=== PATIENT | female | born 1970 | race Caucasian/White ===

== ENCOUNTER 2018-09-13 06:18 | Observation (INO) | payer BC ==
[~2018-09-13] VITALS: Ht 157.5 cm; Wt 76.2 kg
--- NOTE | 2018-09-13 05:55 | NUR ---
Report received from Juanita De La Torre.Patient admitted in unit at 0625 by walking with her . Patient alert/oriented x3. Denied pain and no SOB,Spo2 maintained 98% with RA.Patient came for surgery for esophageal foreigner body. Consent done.Bed in lower position,locked. Will continue to monitor.
--- OUTSIDE RECORDS SUMMARY | 2018-09-13 06:29 | XMS REPORT | Summary of Care ---
Author Author [facility] [place] Organization [facility] [place] Address Unknown Phone Unavailable Encounter HQ Encntr_pat(FIN) [id number] Date(s): 01/20/16 - 01/20/16 [facility] [place] [address] [place] [phone] Discharge Disposition: Home Attending Physician: Keyla Hernandez MD Vital Signs No data available for this section Problem List No data available for this section Allergies, Adverse Reactions, Alerts No data available for this section Medications No data available for this section Results No data available for this section Immunizations No data available for this section Procedures No data available for this section Social History No data available for this section Assessment and Plan No data available for this section
--- OUTSIDE RECORDS SUMMARY | 2018-09-13 06:29 | XMS REPORT | Summary of Care ---
Author Author [facility] Organization [facility] Address Unknown Phone Unavailable Encounter HQ Yudi(JERSON) [id number] Date(s): 10/07/17 - 10/09/17 [facility] [address] [place] [address]- [phone] Encounter Diagnosis Chronic obstructive pulmonary disease with acute lower respiratory infection (Final) - Chronic obstructive pulmonary disease with (acute) exacerbation (Final) - 10/13/17 Nicotine dependence, cigarettes, uncomplicated (Final) - Acute bronchitis due to other specified organisms (Final) - Chronic obstructive pulmonary disease with acute lower respiratory infection (Final) - Discharge Disposition: Home or Self Care Attending Physician: Thomas Chen MD Admitting Physician: Thomas Chen MD Referring Physician: Physician, Non Associated MD Vital Signs 1 2 3 Most recent to oldest [Reference Range]: 157.48 cm (10/07/17 8:43 PM) Height 98.0 DegF (10/09/17 11:53 AM) 97.5 DegF (10/09/17 8:26 AM) 97.4 DegF (10/09/17 3:24 AM) Temperature Oral [96.4-99.1 DegF] 125/87 mmHg (10/09/17 11:53 AM) 125/81 mmHg (10/09/17 8:26 AM) 130/76 mmHg (10/09/17 3:24 AM) Blood Pressure [90-140/60-90 mmHg] 16 BRMIN (10/09/17 7:41 AM) 18 BRMIN (10/08/17 11:27 PM) 18 BRMIN (10/08/17 8:25 PM) Respiratory Rate [14-20 BRMIN] 93 bpm (10/09/17 11:53 AM) 88 bpm (10/09/17 8:26 AM) 81 bpm (10/09/17 3:24 AM) Peripheral Pulse Rate [60-100 bpm] 76.818 kg (10/07/17 8:43 PM) Weight 30.98 m2 (10/07/17 8:43 PM) Body Mass Index Problem List No data available for this section Allergies, Adverse Reactions, Alerts Substance Reaction Severity Status NKDA Active Medications acetaminophen 650 mg, 2 tab, Route: PO, Drug form: TAB, Q4H, Dosing Weight 76.818, kg, PRN Alix n Score 1-3, Start date: 10/08/17 0:57:00 CDT, Duration: 30 day, Stop date: 10/16 11/01 0:56:00 CDT Notes: Do not exceed 4 gm/day. (Same as: Tylenol) Start Date: 10/08/17 Stop Date: 10/09/17 Status: Discontinued albuterol-ipratropium 2.5-0.5 mg inhalation solution 3 mL, Route: NEB, Drug Form: SOLN, kg, RQ6H, Start date: 10/07/17 20:53:00 CDT, Duration: 30 day, Stop date: 11/06/17 20:00:00 CDT Notes: (Same as: Duoneb) Start Date: 10/07/17 Stop Date: 10/09/17 Status: Discontinued albuterol-ipratropium 2.5-0.5 mg inhalation solution 3 ml, Route: NEB, Drug Form: SOLN, Dosing Weight 76.818, kg, Q4H, PRN as needed for shortness of breath or wheezing, Start date: 10/07/17 22:48:00 CDT, Duration : 30 day, Stop date: 11/06/17 22:47:00 CDT Notes: (Same as: Duoneb) Start Date: 10/07/17 Stop Date: 10/09/17 Status: Discontinued cetirizine 10 mg, 2 tab, Route: PO, Drug form: TAB, Daily, PRN Allergies, Start date: 10/09 10:40:00 CDT, Duration: 30 day, Stop date: 11/08/17 10:39:00 CDT Notes: (Same As: Zyrtec) Start Date: 10/09/17 Stop Date: 10/09/17 Status: Discontinued Claritin 10 mg, Route: PO, Drug form: TAB, Daily, Dosing Weight 76.818, kg, PRN Allergies , Start date: 10/09/17 10:12:00 CDT, Duration: 30 day, Stop date: 11/08/17 10:11 :00 CDT Start Date: 10/09/17 Stop Date: 10/09/17 Status: Deleted Claritin-D 24 Hour oral tablet, extended release 1 tab, PO, Daily, PRN as needed for allergy symptoms, 0 Refill(s) Start Date: 10/07/17 Status: Ordered DuoNeb inhalation solution 3 mL, NEB, BID, 0 Refill(s) Start Date: 10/07/17 Status: Ordered Levaquin 750 mg, Route: IVPB, Drug form: SOLN, [id number], Dosing Weight 76.818, kg, Start d ate: 10/07/17 23:00:00 CDT, Duration: 10 day, Stop date: 10/16/17 23:00:00 CDT, ABX Indication: Non-PNA Respiratory Tract Infection Start Date: 10/07/17 Stop Date: 10/08/17 Status: Deleted levofloxacin 750 mg, 3 tab, Route: PO, Drug form: TAB, [id number], kg, For CrCl > 49 mL/min, Priority: Routine, Start date: 10/07/17 21:00:00 CDT, Duration: 5 day, Stop date: 10/11/17 21:00:00 CDT, ABX Indication: Non-PNA Respiratory Tract Infection Notes: Do not give w/antacids, dairy pdt & minerals Take 1 hr before or 2 hr after dairy pdt (Same as:Levaquin) Start Date: 10/07/17 Stop Date: 10/09/17 Status: Discontinued levofloxacin 250 mg oral tablet 750 mg=3 tab, PO, [id number], # 5 tab, 0 Refill(s), Pharmacy: [facility] Start Date: 10/09/17 Stop Date: 10/09/17 Status: Completed Lovenox 40 mg, 0.4 mL, Route: SUB-Q, Drug form: INJ, [id number], Dosing Weight 76.818, kg, Start date: 10/08/17 18:00:00 CDT, Duration: 30 day, Stop date: 11/06/17 18:00: 00 CDT Notes: (Same as: Lovenox) Start Date: 10/08/17 Stop Date: 10/09/17 Status: Discontinued Omnipaque 350 100 ml, Route: IV, Drug Form: SOLN, Dosing Weight 76.818, kg, ONCE, Start date: 10/08/17 17:32:00 CDT, Stop date: 10/08/17 17:32:00 CDT Notes: (same as:Omnipaque 350).WASTE: F/P - Black; E - [facility] Trash [facility] Start Date: 10/08/17 Stop Date: 10/13/17 Status: Discontinued predniSONE 60 mg, 3 tab, Route: PO, Drug form: TAB, Daily, kg, Start date: 10/08/17 9:00:00 CDT, Duration: 5 day, Stop date: 10/12/17 9:00:00 CDT Notes: Take with food. Start Date: 10/08/17 Stop Date: 10/09/17 Status: Discontinued predniSONE 60 mg, Route: PO, Drug form: TAB, Daily, Dosing Weight 76.818, kg, Start date: 0 10/08/17 9:00:00 CDT, Duration: 30 day, Stop date: 11/06/17 9:00:00 CDT Start Date: 10/08/17 Stop Date: 10/08/17 Status: Deleted predniSONE 10 mg oral tablet 10 mg=1 tab, PO, Daily, 60 mg x 3days 40 mg x 3 days 20 mg x 3 days 10 mg x 3 days, # 39 tab, 0 Refill(s), Pharmacy: [facility] Start Date: 10/09/17 Stop Date: 10/09/17 Status: Completed ProAir HFA 1 - 2 puffs, PO, Q4H, PRN Wheezing / cough / shortness of breath, # 1 ea, 0 Refi ll(s) Start Date: 10/07/17 Stop Date: 11/01/17 Status: Ordered Tylenol 500 mg, PO, Q6H, PRN Pain 1-3/Temp > 100.4 F, 0 Refill(s) Start Date: 10/07/17 Status: Ordered Results ELECTROLYTES 1 2 3 Most recent to oldest [Reference Range]: 138 mEq/L (10/08/17 2:01 AM) 141 mEq/L (10/07/17 9:12 PM) Sodium Lvl [135-145 mEq/L] 5.0 mEq/L (10/08/17 2:01 AM) 4.3 mEq/L (10/07/17 9:12 PM) Potassium Lvl [3.5-5.1 mEq/L] 101 mEq/L (10/08/17 2:01 AM) 107 mEq/L (10/07/17 9:12 PM) Chloride Lvl [95-109 mEq/L] 29 mEq/L (10/08/17 2:01 AM) 24 mEq/L (10/07/17 9:12 PM) CO2 [24-32 mEq/L] 13.0 mEq/L (10/08/17:01 AM) 14.3 mEq/L (10/07/17 9:12 PM) AGAP [10.0-20.0 mEq/L] CHEM PANEL 1 2 3 Most recent to oldest [Reference Range]: 0.79 mg/dL (10/08/17 2:01 AM) 0.86 mg/dL (10/07/17 9:12 PM) Creatinine Lvl [0.50-1.40 mg/dL] 88 mL/min/1.73m2 1 *NA* (10/08/17 2:01 AM) 79 mL/min/1.73m2 2 *NA* (10/07/17 9:12 PM) eGFR 12 mg/dL (10/08/17 2:01 AM) 11 mg/dL (10/07/17 9:12 PM) BUN [7-22 mg/dL] 13 (10/07/17 9:12 PM) B/C Ratio [6-25] 159 mg/dL *HI* (10/08/17 2:01 AM) 123 mg/dL *HI* (10/07/17 9:12 PM) Glucose Lvl [70-99 mg/dL] 8.0 g/dL (10/07/17 9:12 PM) Total Protein [6.4-8.4 g/dL] 4.0 g/dL (10/07/17 9:12 PM) Albumin Lvl [3.5-5.0 g/dL] 4.0 g/dL (10/07/17 9:12 PM) Globulin [2.7-4.2 g/dL] 1.0 (10/07/17 9:12 PM) A/G Ratio [0.7-1.6] 10.0 mg/dL (10/08/17 2:01 AM) 9.7 mg/dL (10/07/17 9:12 PM) Calcium Lvl [8.5-10.5 mg/dL] 2.8 mg/dL (10/07/17 9:12 PM) Phosphorus [2.5-4.5 mg/dL] 2.0 mg/dL (10/07/17 9:12 PM) Magnesium Lvl [1.8-2.4 mg/dL] 26 unit/L (10/07/17 9:12 PM) ALT [0-65 unit/L] 16 unit/L (10/07/17 9:12 PM) AST [0-37 unit/L] 169 unit/L *HI* (10/07/17 9:12 PM) Alk Phos [39-136 unit/L] 0.3 mg/dL (10/07/17 9:12 PM) Bili Total [0.2-1.3 mg/dL] 3.9 mMol/L *HI* (10/08/17 6:12 PM) 4.2 mMol/L 3 *CRIT* (10/08/17 3:35 PM) 4.4 mMol/L 4 *CRIT* (10/08/17 11:08 AM) Lactic Acid Lvl [0.5-2.2 mMol/L] 1Result Comment: The eGFR is calculated using the CKD-EPI formula. In most young, healthy individuals the eGFR will be >90 mL/min/1.73m2. The eGFR declines with age. An eGFR of 60-89 may be normal in some populations, particularly the elderly, for whom the CKD-EPI formula has not been extensively validated. Use of the eGFR is not recommended in the following populations: Individuals with unstable creatinine concentrations, including patients and those with serious co-morbid conditions. Patients with extremes in muscle mass or diet. The data above are obtained from the National Kidney Disease Education Program ( NKDEP) which additionally recommends that when the eGFR is used in patients with extremes of body mass index for purposes of drug dosing, the eGFR should be mul tiplied by the estimated BMI. 2Result Comment: The eGFR is calculated using the CKD-EPI formula. In most young, healthy individuals the eGFR will be >90 mL/min/1.73m2. The eGFR declines with age. An eGFR of 60-89 may be normal in some populations, particularly the elderly, for whom the CKD-EPI formula has not been extensively validated. Use of the eGFR is not recommended in the following populations: Individuals with unstable creatinine concentrations, including patients and those with serious co-morbid conditions. Patients with extremes in muscle mass or diet. The data above are obtained from the National Kidney Disease Education Program ( NKDEP) which additionally recommends that when the eGFR is used in patients with extremes of body mass index for purposes of drug dosing, the eGFR should be mul tiplied by the estimated BMI. 3Result Comment: Critical Result(s) called to Russ at 10/08/2017 16:08 by emanuel. Read back OK. 4Result Comment: Critical Result(s) called to Rhiannon Polk at 10/08/2017 13:05 by SATURNINO. Read back OK. CARDIAC ENZYMES 1 2 3 Most recent to oldest [Reference Range]: 193 unit/L *HI* (10/08/17 2:01 AM) 224 unit/L *HI* (10/07/17 9:12 PM) Total CK [12-191 unit/L] 2.7 ng/mL (10/08/17 2:01 AM) 3.1 ng/mL (10/07/17 9:12 PM) CK MB [0.5-3.6 ng/mL] 1.4 (10/08/17 2:01 AM) 1.4 (10/07/17 9:12 PM) CK MB Index [0.0-2.5] <0.02 ng/mL (10/08/17 2:01 AM) <0.02 ng/mL (10/07/17 9:12 PM) Troponin-I [0.00-0.40 ng/mL] HEMATOLOGY 1 2 3 Most recent to oldest [Reference Range]: 10.4 K/CMM (10/08/17 2:01 AM) WBC [3.7-10.4 K/CMM] 4.42 M/CMM (10/08/17 2:01 AM) RBC [4.20-5.40 M/CMM] 14.9 g/dL (10/08/17 2:01 AM) Hgb [12.0-16.0 g/dL] 43.8 % (10/08/17 2:01 AM) Hct [36.0-48.0 %] 98.9 fL *HI* (10/08/17 2:01 AM) MCV [80.0-98.0 fL] 33.6 pg *HI* (10/08/17 2:01 AM) MCH [27.0-31.0 pg] 34.0 g/dL (10/08/17 2:01 AM) MCHC [32.0-36.0 g/dL] 12.4 % (10/08/17 2:01 AM) RDW [11.5-14.5 %] 9.2 fL (10/08/17 2:01 AM) MPV [7.4-10.4 fL] 264 K/CMM (10/08/17 2:01 AM) Platelet [133-450 K/CMM] 89.4 % *HI* (10/08/17 2:01 AM) Segs [45.0-75.0 %] 9.2 % *LOW* (10/08/17 2:01 AM) Lymphocytes [20.0-40.0 %] 1.0 % *LOW* (10/08/17 2:01 AM) Monocytes [2.0-12.0 %] 0.1 % (10/08/17 2:01 AM) Eosinophils [0.0-4.0 %] 0.3 % (10/08/17 2:01 AM) Basophils [0.0-1.0 %] 9.3 K/CMM *HI* (10/08/17 2:01 AM) Segs-Bands # [1.5-8.1 K/CMM] 0.9 K/CMM *LOW* (10/08/17 2:01 AM) Lymphocytes # [1.0-5.5 K/CMM] 0.1 K/CMM (10/08/17 2:01 AM) Monocytes # [0.0-0.8 K/CMM] Microbiology Reports TEST: Culture: Respiratory w/Gram Stain STATUS: Auth (Verified) BODY SITE: SOURCE: Sputum COLLECTED DATE/TIME: 10/08/17 2:42 AM FINAL REPORT Few Staphylococcus aureus Few Yeast Normal Respiratory Winifred Isolated STAIN REPORT Testing Performed At: [facility] ORGANISM:Staphylococcus aureus Immunizations No data available for this section Procedures Procedure Date Related Diagnosis Body Site Status section1 Completed Hysterectomy2 Completed , 1989, 1989, laparoscopic Social History Social History Type Response Alcohol Current, Type Beer, Wine. Frequency: 1-2 times per year. Smoking Status Current every day smoker; Type: Cigarettes; Previous treatment: None; Ready to change: Yes; Concerns about tobacco use in household: Yes; Lives with someone who smokes; Cigarette Smoking Last 365 Days Yes; Reg Smoking Cessation Counseling Yes; Tobacco use per day: 20; Number of years: 35; Total pack years: 35; entered on: 10/07/17 Assessment and Plan Extracted from: Title: Clinical Document Author: Wesley Fagan MD Date: 10/09/17 Progress Note - Dr. Fagan [facility] Attending: Thomas Chen MDPhone: Service: Internal Medicine Code status: Full Code [Ordered] Reason for Admission: COPD EXACERBATION Working DRG: None Documented Isolation: No Isolation/Standard Precautions Consulting Physicians: Wesley Fagan MDOffice: Service: Pulmonary, Medicine Ken Gould MDOffice: Service: Pulmonary, Medicine Allergies (1) ActiveReaction NKDANone documented Subjective: Objective: VitalsTmp(F)[id number] 10/09 15:23 10/09 14:57 93--- 10/09 11:5398.738640/87--92--- 10/09 08:2697.489568/81--91--- 10/09 07:41 1696 2.0L/m 24 Hr Tmax: 98.2F (36.78c) at 10/08 20:25Vital Signs are the last 5 in the past 48 hours. Labs (Last four charted values) WBC 10.4(OCT 08) Hgb 14.9(OCT 08) Hct 43.8(OCT 08) Plt 264(OCT 08) Na 138(OCT 08)141(OCT 07) K 5.0(OCT 08)4.3(OCT 07) CO2 29(OCT 08)24(OCT 07) Cl 101(OCT 08)107(OCT 07) Cr 0.79(OCT 08)0.86(OCT 07) BUN 12(OCT 08)11(OCT 07) Glucose Random H 159(OCT 08)H 123(OCT 07) Mg 2.0(OCT 07) Phos 2.8(OCT 07) Ca 10.0(OCT 08)9.7(OCT 07) Troponin <0.02(OCT 08)<0.02(OCT 07) CK MB 2.7(OCT 08)3.1(OCT 07) Total CK H 193(OCT 08)H 224(OCT 07)I&ORecordInOutBal 4hr Tot 200 0 200 4hr Tot 320 0 320 No qualifying data available Medications (8) Active Scheduled Meds (4): 10/07/17 albuterol-ipratropium (albuterol-ipratropium 2.5-0.5 mg inhalation solution) 3 mL NEB RQ6H 10/08/17 enoxaparin (Lovenox) 40 mg SUB-Q [id number] 10/07/17 levofloxacin 750 mg PO [id number] 10/08/17 predniSONE 60 mg PO Daily Unscheduled Meds: None PRN Meds (3): 10/08/17 acetaminophen 650 mg PO Q4H 10/07/17 albuterol-ipratropium (albuterol-ipratropium 2.5-0.5 mg inhalation solution) 3 ml NEB Q4H 10/09/17 cetirizine 10 mg PO Daily One Time Meds (1): 10/08/17 (Ordered) iohexol (Omnipaque 350) 100 ml IV ONCE Continuous Infusions: None Assessment & Plan: Extracted from: Title: Clinical Document Author: Arleth Melgar MD Date: 10/09/17 Discharge Summary [facility] Arleth Melgar MD Discharge Diagnosis: 1. Acute COPD with exacerbation 2. Viral versus bacterial bronchitis 3. hypoxemia 4. Respiratory distress Brief Hospital Course: 47-year-old female, resident of [facility] who has had increasing shortness of breath for which she went to a local emergency room. From there, the patient has been sent to [facility] for admission. The patient apparently has been a smoker of about 1 pack per day for many years and though she has cut down a little bit lately. She came with cough, congestion, shortness of breath and was thought to have COPD with exacerbation. The patient was quite hypoxic and apparently sent here for further care. The patient says that she has been having problems with shortness of breath in the past. She thinks it may be related to her smoking, but she also has other reasons to be short of breath. 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 She does have some animals including a emerson bird, along with some dogs and cats at home. The patient says that she is trying to cut down on her smoking. She was admitted to the hospital and started on nebs, abx and steroids. She was seen by pulm to establish out pt followup. She had A CTA chest which was neg. She will have a home O2 eval, and will dc based on the results VitalsTmp(F)[id number] 10/09 11:5398.463414/87--92--- 10/09 08:2697.253335/81--91--- 10/09 07:41 1696 2.0L/m 10/09 03:2497.680789/76--94--- 10/08 23:2797.249053/359232--- 24 Hr Tmax: 98.2F (36.78c) at 10/08 20:25Vital Signs are the last 5 in the past 48 hours. Discharge home See Med reconciliation form F/U with PCP in 2 weeks, medical specialists as necessary Diet: cont same diet Activity as juan Labs (Last four charted values) WBC 10.4(OCT 08) Hgb 14.9(OCT 08) Hct 43.8(OCT 08) Plt 264(OCT 08) Na 138(OCT 08)141(OCT 07) K 5.0(OCT 08)4.3(OCT 07) CO2 29(OCT 08)24(OCT 07) Cl 101(OCT 08)107(OCT 07) Cr 0.79(OCT 08)0.86(OCT 07) BUN 12(OCT 08)11(OCT 07) Glucose Random H 159(OCT 08)H 123(OCT 07) Mg 2.0(OCT 07) Phos 2.8(OCT 07) Ca 10.0(OCT 08)9.7(OCT 07) Troponin <0.02(OCT 08)<0.02(OCT 07) CK MB 2.7(OCT 08)3.1(OCT 07) Total CK H 193(OCT 08)H 224(OCT 07)Medications (8) Active Scheduled: (5) albuterol-ipratropium 2.5 mg-0.5 mg/3 ml DAQUAN 3 mL, NEB, RQ6H enoxaparin 40 mg/0.4 ml INJ 40 mg 0.4 mL, SUB-Q, [id number] iohexol 350 mg/ml 100 ml inj 100 ml, IV, ONCE levofloxacin 250 mg TAB 750 mg 3 tab, PO, [id number] predniSONE 20 mg TAB 60 mg 3 tab, PO, Daily Continuous: (0) PRN: (3) acetaminophen 325 mg TABLET 650 mg 2 tab, PO, Q4H albuterol-ipratropium 2.5 mg-0.5 mg/3 ml DAQUAN 3 ml, NEB, Q4H cetirizine 5 mg TAB 10 mg 2 tab, PO, Daily Medications (8) Active Scheduled Meds (4): 10/07/17 albuterol-ipratropium (albuterol-ipratropium 2.5-0.5 mg inhalation solution) 3 mL NEB RQ6H 10/08/17 enoxaparin (Lovenox) 40 mg SUB-Q [id number] 10/07/17 levofloxacin 750 mg PO [id number] 10/08/17 predniSONE 60 mg PO Daily Unscheduled Meds: None PRN Meds (3): 10/08/17 acetaminophen 650 mg PO Q4H 10/07/17 albuterol-ipratropium (albuterol-ipratropium 2.5-0.5 mg inhalation solution) 3 ml NEB Q4H 10/09/17 cetirizine 10 mg PO Daily One Time Meds (1): 10/08/17 (Ordered) iohexol (Omnipaque 350) 100 ml IV ONCE Continuous Infusions: None Extracted from: Title: Clinical Document Author: Brian Mcintosh MD Date: 10/07/17 PHD History and Physical Chief Complaint: SOB HPI: Patient is a 47 ;yo F,h/o COPD, here for shortness of breath. She has been battling a viral URI for the last week or so. Then around 0200 this am, she started having severe shortness of breath, so her brought her to an outside clinic around 12:00 today. There, she was found to be "severly hypoxic" per patient, so she was transferred to for further management. She is somewhat short of breath now, but denies any fevers, chills, cough, sputum, chest pain, palpitations, edema, PND, orthopnea. ROS: 12 point ROS is negative other than that described in HPI. Past Medical History: No qualifying data available Past Surgical History: Hysterectomy section Family History: Reviewed and patient does not know. Father: Heart attack; Heart failure Sister: Lupus Grandparent: Asthma; COPD Social History: No significant social history. Alcohol Details: Current, Type Beer, Wine. Frequency: 1-2 times per year. Tobacco Details: Use: Current every day smoker. Type: Cigarettes. 20 per day. 35 year(s). Total pack years: 35. Previous treatment: None. Ready to change: Yes. Household tobacco concerns: Yes. Tobacco smoke exposure: Lives with someone who smokes. Did the Patient Smoke Cigarettes Anytime During the Last 365 Days? Yes. Cessation Counseling Provided? Yes. Medications: Medication List Active Medications Ordered albuterol-ipratropium: 3 mL, NEB, RQ6H. albuterol-ipratropium: 3 ml, NEB, Q4H, PRN: as needed for shortness of breath or wheezing. levofloxacin: 750 mg, 3 tab, PO, [id number]. levofloxacin: 750 mg, IVPB, [id number]. predniSONE: 60 mg, 3 tab, PO, Daily. predniSONE: 60 mg, PO, Daily. Suspended acetaminophen: 500 mg, PO, Q6H, PRN: Pain 1-3/Temp > 100.4 F, 0 Refill(s). albuterol: 1 - 2 puffs, PO, Q4H, for 25 day, PRN: Wheezing / cough / shortness of breath, 1 ea, 0 Refill(s). albuterol-ipratropium: 3 mL, NEB, BID, 0 Refill(s). loratadine-pseudoephedrine: 1 tab, PO, Daily, PRN: as needed for allergy symptoms, 0 Refill(s). Medications Inactivated in the Last 72 Hours No medications found. Allergies: Allergies: NKDA Physical Exam: Gen: Alert and oriented. No apparent distress. HEENT: Normocephalic and atraumatic. Pupils equal, round, and reactive to light. Extraoccular muscles grossly intact. Ears, nose and throat clear. Neck: No lymphadenopathy. No thyromegally. No bruits. Cardiac: Regular rate and rhythm. No murmurs, rubs, or gallops. Lungs: Decreased air movement in lungs diffusely bilaterally. Back: No tenderness to palpation. No costo-vetebral angle tenderness. Abdomen: Soft. No tenderness to palpation. Bowel sounds appropriate. : Deferred Extremities: No cyanosis, clubbing, or edema. Pulses intact and palpable. Skin: No rashes or lesions. Neuro: Cranial nerves grossly intact. No obvious focal deficits. Labs: Labs A/G Ratio: 1 (10/07/17 21:48:44) AGAP: 14.3 mEq/L (10/07/17 21:48:44) Albumin Lvl: 4 g/dL (10/07/17 21:48:44) Alk Phos: 169 unit/L High (10/07/17 21:48:44) Allens Art: POS (10/07/17 21:38:17) ALT: 26 unit/L (10/07/17 21:48:44) AST: 16 unit/L (10/07/17 21:48:44) B/C Ratio: 13 (10/07/17 21:48:44) BE Art: -1 mMol/L (10/07/17 21:38:17) Bili Total: 0.3 mg/dL (10/07/17 21:48:44) BUN: 11 mg/dL (10/07/17 21:48:44) Calcium Lvl: 9.7 mg/dL (10/07/17 21:48:44) Chloride Lvl: 107 mEq/L (10/07/17 21:48:44) CK MB: 3.1 ng/mL (10/07/17 22:11:44) CK MB Index: 1.4 (10/07/17 22:11:45) CO2: 24 mEq/L (10/07/17 21:48:44) Creatinine Lvl: 0.86 mg/dL (10/07/17 21:48:44) eGFR: 79 mL/min/1.73m2 (10/07/17 21:48:45) FiO2 Art: 32 (10/07/17:38:17) Globulin: 4 g/dL (10/07/17 21:48:44) Glucose Lvl: 123 mg/dL High (10/07/17 21:48:44) HCO3 Art: 24 mMol/L (10/07/17:38:17) Magnesium Lvl: 2 mg/dL (10/07/17 21:48:46) O2 Sat Art: 89.1 % Low (10/07/17:38:17) pCO2 Art: 41 mmHg (10/07/17:38:17) pH Art: 7.38 (10/07/17:38:17) Phosphorus: 2.8 mg/dL (10/07/17 21:48:48) pO2 Art: 59 mmHg Critical (10/07/17:38:17) Potassium Lvl: 4.3 mEq/L (10/07/17 21:48:44) Site Art: Rr (10/07/17:38:17) Sodium Lvl: 141 mEq/L (10/07/17 21:48:44) Temp Art: 37.2 DegC (10/07/17:38:17) Total CK: 224 unit/L High (10/07/17 21:47:49) Total Protein: 8 g/dL (10/07/17 21:48:44) Troponin-I: <0.02 (10/07/17 21:47:50) Studies: No qualifying data available. Assessment: Patient is a 47 ;yo F,h/o COPD, here for shortness of breath. Plan: 1. COPD exacerbation - - nebs - steroids - levaquin - BCx and SCx pending. 2. Proph - - ambulation 3. Code - FULL
--- OUTSIDE RECORDS SUMMARY | 2018-09-13 06:29 | XMS REPORT | Continuity of Care Document ---
Author Author [facility] Interface Address Unknown Phone Unavailable Problems Problem Status Onset Date Classification Date Reported Comments Source Chronic obstructive pulmonary disease with exacerbation 10/14/2017 01/15/2018 [facility] COPD EXACERBATION Active 10/07/2017 [facility] G62.9 - "POLYNEUROPATHY, UNSPECIFIED" Active 01/08/2016 [facility] Chronic obstructive pulmonary disease with acute lower respiratory infection 01/15/2018 [facility] Nicotine dependence, cigarettes, uncomplicated 01/15/2018 [facility] Acute bronchitis due to other specified organisms 01/15/2018 [facility] CHRONIC OBSTRUCTIVE PULMON DISEASE W ACU Active [facility] CHRONIC OBSTRUCTIVE PULMONARY DISEASE W Active [facility] Medications Medication Details Route Status Patient Instructions Ordering Provider Order Date Source levofloxacin 250 mg oral tablet 750 mg=3 tab, PO, [id number], # 5 tab, 0 Refill(s), Pharmacy: [facility] Inactive 10/09/2017 [facility] predniSONE 10 mg oral tablet 10 mg=1 tab, PO, Daily, 60 mg x 3days 40 mg x 3 days 20 mg x 3 days 10 mg x 3 days, # 39 tab, 0 Refill(s), Pharmacy: [facility] Inactive 10/09/2017 [facility] cetirizine 10 mg, 2 tab, Route: PO, Drug form: TAB, Daily, PRN Allergies, Start date: 10/09/17 10:40:00 CDT, Duration: 30 day, Stop date: 11/08/17 10:39:00 CDTNotes: (Same As: Zyrtec) Inactive 10/09/2017 [facility] Claritin 10 mg, Route: PO, Drug form: TAB, Daily, Dosing Weight 76.818, kg, PRN Allergies, Start date: 10/09/17 10:12:00 CDT, Duration: 30 day, Stop date: 11/08/17 10:11:00 CDT Inactive 10/09/2017 [facility] Lovenox 40 mg, 0.4 mL, Route: SUB-Q, Drug form: INJ, [id number], Dosing Weight 76.818, kg, Start date: 10/08/17 18:00:00 CDT, Duration: 30 day, Stop date: 11/06/17 18:00:00 CDTNotes: (Same as: Lovenox) No Longer Active 10/08/2017 [facility] Omnipaque 350 100 ml, Route: IV, Drug Form: SOLN, Dosing Weight 76.818, kg, ONCE, Start date: 10/08/17 17:32:00 CDT, Stop date: 10/08/17 17:32:00 CDTNotes: (same as:Omnipaque 350). WASTE: F/P - Black; E - [employer] No Longer Active 10/08/2017 [facility] Prednisone 60 mg, 3 tab, Route: PO, Drug form: TAB, Daily, kg, Start date: 10/08/17 9:00:00 CDT, Duration: 5 day, Stop date: 10/12/17 9:00:00 CDTNotes: Take with food. No Longer Active 10/08/2017 [facility] Acetaminophen 650 mg, 2 tab, Route: PO, Drug form: TAB, Q4H, Dosing Weight 76.818, kg, PRN Pain Score 1-3, Start date: 10/08/17 0:57:00 CDT, Duration: 30 day, Stop date: 11/07/17 0:56:00 CDTNotes: Do not exceed 4 gm/day. (Same as: Tylenol) No Longer Active 10/08/2017 [facility] Levaquin 750 mg, Route: IVPB, Drug form: SOLN, [id number], Dosing Weight 76.818, kg, Start date: 10/07/17 23:00:00 CDT, Duration: 10 day, Stop date: 10/16/17 23:00:00 CDT, ABX Indication: Non-PNA Respiratory Tract Infection No Longer Active 10/08/2017 [facility] Albuterol 0.833 MG/ML / Ipratropium Coolin 0.167 MG/ML Inhalant Solution 3 ml, Route: NEB, Drug Form: SOLN, Dosing Weight 76.818, kg, Q4H, PRN as needed for shortness of breath or wheezing, Start date: 10/07/17 22:48:00 CDT, Duration: 30 day, Stop date: 11/06/17 22:47:00 CDTNotes: (Same as: Duoneb) No Longer Active 10/08/2017 [facility] Tylenol 500 mg, PO, Q6H, PRN Pain 1-3/Temp > 100.4 F, 0 Refill(s) Active 10/08/2017 [facility] 24 HR Loratadine 10 MG / Pseudoephedrine sulfate 240 MG Extended Release Tablet [Claritin-D] 1 tab, PO, Daily, PRN as needed for allergy symptoms, 0 Refill(s) Active 10/08/2017 [facility] ProAir HFA 1 - 2 puffs, PO, Q4H, PRN Wheezing / cough / shortness of breath, # 1 ea, 0 Refill(s) Active 10/08/2017 [facility] Albuterol 0.833 MG/ML / Ipratropium Coolin 0.167 MG/ML Inhalant Solution [DuoNeb] 3 mL, NEB, BID, 0 Refill(s) Active 10/08/2017 [facility] Levofloxacin 750 mg, 3 tab, Route: PO, Drug form: TAB, [id number], kg, For CrCl > 49 mL/min, Priority: Routine, Start date: 10/07/17 21:00:00 CDT, Duration: 5 day, Stop date: 10/11/17 21:00:00 CDT, ABX Indication: Non-PNA Respiratory Tract InfectionNotes: Do not give w/antacids, dairy pdt & minerals Take 1 hr before or 2 hr after dairy pdt (Same as:Levaquin) No Longer Active 10/08/2017 [facility] Albuterol 0.833 MG/ML / Ipratropium Coolin 0.167 MG/ML Inhalant Solution 3 mL, Route: NEB, Drug Form: SOLN, kg, RQ6H, Start date: 10/07/17 20:53:00 CDT, Duration: 30 day, Stop date: 11/06/17 20:00:00 CDTNotes: (Same as: Duoneb) No Longer Active 10/08/2017 [facility] Allergies, Adverse Reactions, Alerts Substance Category Reaction Severity Reaction type Status Date Reported Comments Source Immunizations Immunization Date Given Site Status Last Updated Comments Source Results Order Name Results Value Reference Range Date Interpretation Comments Source CHEM PANEL Lactic Acid Lvl 3.9 mMol/L 0.5 - 2.2 10/08/2017 [facility] CHEM PANEL Lactic Acid Lvl 4.2 mMol/L 0.5 - 2.2 10/08/2017 Result Comment: Critical Result(s) called to Russ at 10/08/2017 16:08 by [email or web address]. Read back OK. [facility] Chest CTA Chest CTA EXAM: CT CHEST WITH CONTRAST, PULMONARY EMBOLISM PROTOCOL DATE: 10/08/2017 5:03 PM CDT INDICATION: Shortness of breath. COMPARISON: None. TECHNIQUE: Helical CT angiography of the chest was performed from the lung bases through the thoracic inlet following the administration of intravenous contrast. Axial, coronal, and sagittal multiplanar reconstructions are provided for review. 3D reconstructions of the pulmonary arteries were also generated. IV contrast: 100 cc Omnipaque. Dose: SCX=427.27 mGy-cm FINDINGS: PULMONARY ARTERIES: No central or segmental pulmonary emboli are identified. The main pulmonary artery trunk as well as the left and right main pulmonary arteries are not enlarged. SYSTEMIC VESSELS: The thoracic aorta is normal in caliber without dissection or aneurysm. The great vessels appear unremarkable. HEART: There is no evidence of right ventricular strain. The cardiac chambers are unremarkable. There is no pericardial effusion. LUNGS AND PLEURA: Linear opacities within the lung bases are compatible with subsegmental atelectasis. No suspicious pulmonary nodules are present. No pleural effusions or pneumothorax. AIRWAY: The central airway is normal. MEDIASTINUM: No significant mediastinal lymphadenopathy. VISUALIZED UPPER ABDOMEN: Minimal nodular thickening of the adrenal glands is nonspecific. OSSEOUS STRUCTURES: No acute osseous abnormality. SOFT TISSUE: The left lobe of the thyroid gland appears atrophic. IMPRESSION: No acute intrathoracic abnormality. No pulmonary embolism. SL: [id number] 10/08/2017 - - Read by: Waqas Shahid MD Dictated Date/time: 10/08/17 18:40 Electronically Signed by: Waqas Shahid MD 10/08/17 18:48 FINAL REPORT [facility] CHEM PANEL Lactic Acid Lvl 4.4 mMol/L 0.5 - 2.2 10/08/2017 Result Comment: Critical Result(s) called to Rhiannon Polk at 10/08/2017 13:05 by MJ. Read back OK. [facility] CHLORAMPHENICOL:SUSC:PT:ISOLATE:ORDQN:KIZZY Gram Stain Report Testing Performed At: [facility] 10/08/2017 [facility] CHLORAMPHENICOL:SUSC:PT:ISOLATE:ORDQN:KIZZY Culture: Respiratory w/Gram Stain Few Staphylococcus aureus Few Yeast Normal Respiratory Winifred Isolated 10/08/2017 [facility] CHLORAMPHENICOL:SUSC:PT:ISOLATE:ORDQN:KIZZY Staphylococcus aureus Staphylococcus aureus 10/08/2017 [facility] CARDIAC ENZYMES Total CK 193 unit/L 12 - 191 10/08/2017 [facility] CARDIAC ENZYMES Troponin-I null 0.00 - 0.40 10/08/2017 [facility] CARDIAC ENZYMES CK MB Index 1.4 0.0 - 2.5 10/08/2017 [facility] CARDIAC ENZYMES CK MB 2.7 ng/mL 0.5 - 3.6 10/08/2017 [facility] ELECTROLYTES Potassium Lvl 5.0 meq/L 3.5 - 5.1 10/08/2017 [facility] ELECTROLYTES Sodium Lvl 138 meq/L 135 - 145 10/08/2017 [facility] ELECTROLYTES Creatinine Lvl 0.79 mg/dL 0.50 - 1.40 10/08/2017 [facility] ELECTROLYTES Chloride Lvl 101 meq/L 95 - 109 10/08/2017 [facility] ELECTROLYTES CO2 29 meq/L 24 - 32 10/08/2017 [facility] ELECTROLYTES Calcium Lvl 10.0 mg/dL 8.5 - 10.5 10/08/2017 [facility] eGFR 88 mL/min/1.73m2 10/08/2017 Result Comment: The eGFR is calculated using the [...] from the National Kidney Disease Education Program (NKDEP) which additionally recommends that when the eGFR is used in patients with extremes of body mass index for purposes of drug dosing, the eGFR should be multiplied by the estimated BMI. [facility] ELECTROLYTES Glucose Lvl 159 mg/dL 70 - 99 10/08/2017 [facility] ELECTROLYTES BUN 12 mg/dL 7 - 22 10/08/2017 [facility] ELECTROLYTES AGAP 13.0 meq/L 10.0 - 20.0 10/08/2017 [facility] HEMATOLOGY MPV 9.2 fL 7.4 - 10.4 10/08/2017 [facility] HEMATOLOGY RDW 12.4 % 11.5 - 14.5 10/08/2017 [facility] HEMATOLOGY Platelet 264 K/CMM 133 - 450 10/08/2017 [facility] HEMATOLOGY MCV 98.9 fL 80.0 - 98.0 10/08/2017 [facility] HEMATOLOGY Hct 43.8 % 36.0 - 48.0 10/08/2017 [facility] Hgb 14.9 g/dL 12.0 - 16.0 10/08/2017 [facility] MCHC 34.0 g/dL 32.0 - 36.0 10/08/2017 [facility] MCH 33.6 pg 27.0 - 31.0 10/08/2017 [facility] WBC 10.4 K/CMM 3.7 - 10.4 10/08/2017 [facility] RBC 4.42 M/CMM 4.20 - 5.40 10/08/2017 [facility] Lymphocytes # 0.9 K/CMM 1.0 - 5.5 10/08/2017 [facility] HEMATOLOGY Monocytes # 0.1 K/CMM 0.0 - 0.8 10/08/2017 [facility] HEMATOLOGY Eosinophils 0.1 % 0.0 - 4.0 10/08/2017 [facility] HEMATOLOGY Basophils 0.3 % 0.0 - 1.0 10/08/2017 [facility] Lymphocytes 9.2 % 20.0 - 40.0 10/08/2017 [facility] Monocytes 1.0 % 2.0 - 12.0 10/08/2017 [facility] Segs-Bands # 9.3 K/CMM 1.5 - 8.1 10/08/2017 [facility] HEMATOLOGY Segs 89.4 % 45.0 - 75.0 10/08/2017 [facility] CARDIAC ENZYMES Total CK 224 unit/L 12 - 191 10/08/2017 [facility] CARDIAC ENZYMES Troponin-I null 0.00 - 0.40 10/08/2017 [facility] CARDIAC ENZYMES CK MB Index 1.4 0.0 - 2.5 10/08/2017 [facility] CARDIAC ENZYMES CK MB 3.1 ng/mL 0.5 - 3.6 10/08/2017 [facility] CHEM PANEL Phosphorus 2.8 mg/dL 2.5 - 4.5 10/08/2017 [facility] CHEM PANEL Magnesium Lvl 2.0 mg/dL 1.8 - 2.4 10/08/2017 [facility] CHEM PANEL eGFR 79 mL/min/1.73m2 10/08/2017 Result Comment: The eGFR is calculated using the [...] from the National Kidney Disease Education Program (NKDEP) which additionally recommends that when the eGFR is used in patients with extremes of body mass index for purposes of drug dosing, the eGFR should be multiplied by the estimated BMI. [facility] CHEM PANEL B/C Ratio 13 6 - 25 10/08/2017 [facility] CHEM PANEL A/G Ratio 1.0 0.7 - 1.6 10/08/2017 [facility] CHEM PANEL Globulin 4.0 g/dL 2.7 - 4.2 10/08/2017 [facility] CHEM PANEL Bili Total 0.3 mg/dL 0.2 - 1.3 10/08/2017 [facility] CHEM PANEL Alk Phos 169 unit/L 39 - 136 10/08/2017 [facility] CHEM PANEL AGAP 14.3 meq/L 10.0 - 20.0 10/08/2017 [facility] CHEM PANEL ALT 26 unit/L 0 - 65 10/08/2017 [facility] CHEM PANEL Albumin Lvl 4.0 g/dL 3.5 - 5.0 10/08/2017 [facility] CHEM PANEL Total Protein 8.0 g/dL 6.4 - 8.4 10/08/2017 [facility] CHEM PANEL AST 16 unit/L 0 - 37 10/08/2017 [facility] CHEM PANEL CO2 24 meq/L 24 - 32 10/08/2017 [facility] CHEM PANEL Chloride Lvl 107 meq/L 95 - 109 10/08/2017 [facility] CHEM PANEL Potassium Lvl 4.3 meq/L 3.5 - 5.1 10/08/2017 [facility] CHEM PANEL Sodium Lvl 141 meq/L 135 - 145 10/08/2017 [facility] CHEM PANEL Calcium Lvl 9.7 mg/dL 8.5 - 10.5 10/08/2017 [facility] CHEM PANEL BUN 11 mg/dL 7 - 22 10/08/2017 [facility] CHEM PANEL Glucose Lvl 123 mg/dL 70 - 99 10/08/2017 [facility] CHEM PANEL Creatinine Lvl 0.86 mg/dL 0.50 - 1.40 10/08/2017 [facility] Brain w/wo contrast MRI Brain w/wo contrast MRI COMPARISON: No prior exam. COMMENTS: No intracranial hemorrhage, ventriculomegaly, midline shift, or acute ischemia is seen. Flow voids are seen within the vessels at the skull base. There is no diffusion restriction. Left posterior frontal centrum semiovale/pericallosal also 8mm focus of gliosis is present without corresponding enhancement. The remainder of the supratentorial white matter is unremarkable. The corpus callosum, brainstem, and brachii pontis appear unremarkable. The cerebellum appears unremarkable. The sella appears unremarkable. No pathologic enhancement is demonstrated. The paranasal sinuses and mastoid air cells are well aerated. IMPRESSION: 1. No acute hemorrhage, acute ischemia, or mass. 2. Left posterior frontal centrum semiovale/pericallosal gliosis may represent chronic infarct versus, less likely demyelination plaque. 01/20/2016 - - Read by: Dandre Hartman MD Dictated Date/time: 01/20/16 14:06 Electronically Signed by: Dandre Hartman MD 01/20/16 14:13 FINAL REPORT BARBARA Pereza Spine cervical w/wo contrast MRI Spine cervical w/wo contrast MRI MRI CERVICAL SPINE WITHOUT AND WITH CONTRAST TECHNIQUE: Multiplanar multisequence imaging of the cervical spine was performed without and with administration of intravenous gadolinium. COMPARISON: No prior exam. FINDINGS: The cervical cord signal is unremarkable without MRI evidence of demyelination plaque. No abnormal cervical spinal cord enhancement is seen. C2-C3: Unremarkable. C3-C4: Small posterior annular fissure is seen without central canal or foraminal stenosis. C4-C5: Unremarkable. C5-C6: Unremarkable. C6-C7: Unremarkable. C7-T1: Unremarkable. No abnormal enhancement is identified. IMPRESSION: 1. No evidence of cervical spinal cord demyelination plaque. Please see additional comments above. 01/20/2016 - - Read by: Dandre Hartman MD Dictated Date/time: 01/20/16 12:54 Electronically Signed by: Dandre Hartman MD 01/20/16 13:14 FINAL REPORT BRAXTON Alexis Spine lumbar wo contrast MRI Spine lumbar wo contrast MRI MRI LUMBAR SPINE WITHOUT CONTRAST COMPARISON: No prior exam. TECHNIQUE: Sagittal T1, sagittal T2 with fat saturation, axial T1 and axial T2 images were obtained. No intravenous gadolinium was given. FINDINGS: The paravertebral soft tissues are normal. The conus medullaris terminates at the L1-L2 level. T12-L1: Unremarkable. L1-L2: Unremarkable. L2-L3: Unremarkable. L3-L4: No central canal stenosis. Small bilateral foraminal and extraforaminal disc osteophyte complexes are seen without significant foraminal stenosis. L4-L5: Small scattered annular fissures present. 2.9 mm broad-based central disc protrusion is present with mild central canal stenosis. Minimal bilateral foraminal stenosis is seen without mass effect on exiting nerve roots. L5-S1: Unremarkable. IMPRESSION: 1. L3-L4 and L4-L5 mild degenerative changes. L4-L5 mild central canal stenosis and minimal bilateral foraminal stenosis. 01/20/2016 - - Read by: Dandre Hartman MD Dictated Date/time: 01/20/16 12:35 Electronically Signed by: Dandre Hartman MD 01/20/16 12:41 FINAL REPORT BRAXTON Alexis Vital Signs Vital Sign Value Date Comments Source Heart Rate 93 10/09/2017 [facility] Systolic (mm Hg) 125 10/09/2017 [facility] Diastolic (mm Hg) 87 10/09/2017 [facility] Temperature Oral (F) 98.0 F 10/09/2017 [facility] Systolic (mm Hg) 125 10/09/2017 [facility] Diastolic (mm Hg) 81 10/09/2017 [facility] Heart Rate 88 10/09/2017 [facility] Temperature Oral (F) 97.5 F 10/09/2017 [facility] Respitory Rate 16 10/09/2017 [facility] Heart Rate 81 10/09/2017 [facility] Temperature Oral (F) 97.4 F 10/09/2017 [facility] Systolic (mm Hg) 130 10/09/2017 [facility] Diastolic (mm Hg) 76 10/09/2017 [facility] Respitory Rate 18 10/09/2017 [facility] Respitory Rate 18 10/09/2017 [facility] Weight 76.818 10/08/2017 [facility] BMI Calculated 30.98 10/08/2017 [facility] Height 157.48 cm 10/08/2017 [facility] Encounters Location Location Details Encounter Type Encounter Number Reason For Visit Attending Provider ADM Date DC Date Status Source [facility] [id number] Keyla Hernandez 01/20[facility]2016 [facility] [id number] Non Physician 10/08/2017 10/09/2017 [facility] Procedures Procedure Code Date Perfomer Comments Source section<sup>1</sup> [id number] 1986, 1989, 1989 [facility] Hysterectomy<sup>2</sup> [id number] 2004, laparoscopic [facility]
[2018-09-13 06:57] VITALS: BP 158/105
[2018-09-13 07:14] LABS: BASOPHILS % 0.2 % (0.0-1.0); EOSINOPHILS # (AUTO) 0.3 (0.0-0.4); EOSINOPHILS % 1.8 % (0.0-6.0); HEMATOCRIT 40.6 % (34.2-44.1); LYMPHOCYTES # (AUTO) 2.4 (1.0-3.2); LYMPHOCYTES % 17.1 % (18.0-39.1); MEAN CORPUSCULAR HEMOGLOBIN 33.8 pg (28-32); MEAN CORPUSCULAR HGB CONC 34.5 g/dL (31-35); MEAN CORPUSCULAR VOLUME 98.1 fL (81-99); MONOCYTES # (AUTO) 0.9 (0.2-0.8); MONOCYTES % 6.3 % (4.4-11.3); NEUTROPHILS # (AUTO) 10.5 (2.1-6.9); NEUTROPHILS % 74.2 % (38.7-80.0); PLATELET COUNT 280 x10e3/uL (140-360); RED BLOOD COUNT 4.14 x10e6/uL (3.6-5.1); RED CELL DISTRIBUTION WIDTH 11.8 % (11.7-14.4)
[2018-09-13] MEDS ORDERED: LACTATED RINGER'S 1,000 ML IV ONE (07:15)
--- NOTE | 2018-09-13 07:16 | NUR ---
Report given to AM nurse Jenny,walking round done.
[2018-09-13 07:21] LABS: INR 0.83; PROTHROMBIN TIME 12.2 seconds (11.9-14.5)
[2018-09-13 07:41] LABS: ANION GAP 13.8 mmol/L (8-16); BLOOD UREA NITROGEN 13 mg/dL (7-26); BUN/CREATININE RATIO 16 (6-25); CALCIUM 9.6 mg/dL (8.4-10.2); CARBON DIOXIDE 22 mmol/L (22-29); CHLORIDE 106 mmol/L (98-107); CREATININE, SERUM 0.79 mg/dL (0.57-1.11); EST GLOMERULAR FILTRATION RATE > 60 ML/MIN (60-); GLUCOSE 101 mg/dL (74-118); POTASSIUM 3.8 mmol/L (3.5-5.1); SODIUM 138 mmol/L (136-145)
--- NOTE | 2018-09-13 07:46 | Diagnostic Imaging Report ---
EXAMINATION: CHEST SINGLE (PORTABLE) INDICATION: Pre-procedure. COMPARISON: None FINDINGS: TUBES and LINES: None. LUNGS: Nodular opacity projects at the right lung apex. There is biapical pleural parenchymal opacity. No evidence of pneumonia or pulmonary edema. PLEURA: No pleural effusion or pneumothorax. HEART AND MEDIASTINUM: The cardiomediastinal silhouette is unremarkable. BONES AND SOFT TISSUES: No acute osseous lesion. Soft tissues are unremarkable. UPPER ABDOMEN: No free air under the diaphragm. IMPRESSION: Biapical pleural parenchymal opacity with nodular opacity at the right lung apex. This likely represents sequela of prior granulomatous disease. However, given the asymmetric appearance, suggest chest CT or comparison to prior studies for further evaluation. Signed by: Dr. Nellie Love MD on 09/13/2018 7:43 AM
[2018-09-13 07:49] VITALS: BP 133/92
[2018-09-13 08:23] VITALS: BP 133/92
[2018-09-13] MEDS ORDERED: PANTOPRAZOLE 40 MG 10ML VIAL ONE (10:10)
[2018-09-13 10:37] VITALS: BP 143/92
[2018-09-13 11:31] VITALS: BP 150/89
[2018-09-13 15:29] VITALS: BP 124/84
[2018-09-13] MEDS ORDERED: PANTOPRAZOLE 40 MG 10ML VIAL IV SCH ×2 (17:00→19:00)
[2018-09-13] MEDS ORDERED: PANTOPRAZOLE SO40 MG PO (17:15)
--- NOTE | 2018-09-13 17:44 | Operative Report ---
DATE OF PROCEDURE: 09/13/2018 SURGEON: Roel Vines MD PROCEDURE: EGD with foreign body removal and biopsies. INDICATIONS FOR EGD: Foreign body in esophagus. MEDICATIONS: The patient was done under MAC. Please see anesthesiologist's note. PROCEDURE IN DETAIL: With the patient in the left lateral decubitus position, a flexible fiberoptic Olympus gastroscope was introduced into the esophagus under direct visualization without any difficulty. A large bolus of meat was noted to be impacted in the distal esophagus that was partially removed with the alligator forceps and the polypectomy snare and rest of the bolus was gently pushed into the stomach. The mucosa overlying the distal esophagus revealed some diffuse intense erythema and there was an approximately 5-mm ulcer without active bleeding. There was a stricture noted at the GE junction that was traversed with the scope, which also traversed a small hiatal hernia. The mucosa overlying the antrum and the body revealed some patchy intense erythema and moderate edema. Biopsies were obtained, sent to stain for H. pylori. Pylorus was of normal contour and shape, was intubated with ease and the scope was advanced all the way to the second portion of the duodenum. The scope was then withdrawn slowly and mucosa overlying the proximal second portion and the duodenal bulb revealed some patchy areas of erythema. The scope was then withdrawn back into the stomach and retroflexed and mucosa overlying the fundus and the cardia appeared to be within normal limits. The scope was then straightened out, it was subsequently withdrawn. The patient tolerated procedure well. IMPRESSION: 1. Bolus of meat impacted in distal esophagus, partially removed per alligator forceps and polypectomy snare and rest was gently pushed into the stomach. 2. Severe distal esophagitis with approximately 5-mm ulcer without active bleeding or stigmata of recent hemorrhage. 3. Esophageal stricture, gastroesophageal junction. 4. Small hiatal hernia. 5. Gastritis, biopsied. Biopsies sent to stain for Helicobacter pylori. PLAN: Follow up histology. Initiate full liquid diet. Start Protonix 40 mg IV b.i.d. The patient will need an EGD with esophageal dilatation electively on an outpatient basis. Roel Vines MD [facility] [place] /[id number] cc: Soy Taylor MD
[2018-09-13] MEDS ORDERED: FENTANYL CITRATE/PF 100MCG/2 ML INJ ONE (19:03)
[2018-09-13] MEDS ORDERED: MIDAZOLAM HCL 2 MG/2 ML VIAL ONE (19:03)
[2018-09-13] MEDS ORDERED: GLUCAGON FOR INJ 1 MG VIAL ONE (19:26)
[2018-09-13] MEDS ORDERED: PROPOFOL IV EMULSION 10 MG/ML 50 ML VIAL ONE (19:26)
== END 2018-09-13 18:05 | disposition home or self-care (01) ==
LOC: INTOOBSV 06:25 → IMCU 06:25
PROVIDERS: ADMIT Internal Medicine Gastroenterology; ATTEND Internal Medicine Gastroenterology
DX: T18.128A Food in esophagus causing other injury, initial encounter (principal); K22.2 Esophageal obstruction; K44.9 Diaphragmatic hernia without obstruction or gangrene; K29.70 Gastritis, unspecified, without bleeding; K20.9 Esophagitis, unspecified; K22.10 Ulcer of esophagus without bleeding; G47.33 Obstructive sleep apnea (adult) (pediatric); K21.9 Gastro-esophageal reflux disease without esophagitis
CPT/HCPCS: 36415; 43239; 43247; 43251; 71045; 80048; 85025; 85610; 88305; 88312; 93041; 96360; C9113; G0378; J1610; J2250; J2704; J7121